=== PATIENT | male | born 1955 | race Caucasian/White ===

== ENCOUNTER 2017-09-17 22:35 | Inpatient (IN) | payer OTHER ==
[~2017-09-17 22:35] MED LIST: FOLI1TAB6; HYDR25TA5 PO; LISI-515 PO; METO25TA3 PO
[2017-09-17 23:00] VITALS: BP 144/97; PULSE 101; RESP 18; TEMP 97.7; O2SAT 98
[2017-09-17 23:26] VITALS: PULSE 110
[2017-09-18] VITALS (29 sets, daily range): BP systolic 106–132; BP diastolic 82–97; PULSE 80–136; RESP 16–18; TEMP 98.3–98.8; O2SAT 95–98
[2017-09-18] MEDS ORDERED: METOPROLOL TARTRATE 25 MG TAB PO SCH (09:00)
[2017-09-18] MEDS: APIXABAN 5 MG TABLET PO SCH (09:02)
[2017-09-18] MEDS: LISINOPRIL 20 MG TAB PO SCH (09:02)
[2017-09-18] MEDS: FUROSEMIDE 20 MG TAB PO SCH (09:02)
--- NOTE | 2017-09-18 10:15 | HHI.HP ---
HPI Service CP Hospitalists Primary Care Physician [facility] Admission Diagnosis Atrial fib with RVR Chief Complaint: Fatigues, LE edema Travel History International Travel<30 Days: No Contact w/Intl Traveler <30 Da: No Traveled to Known Affected Are: No History of Present Illness Mr. Rayray Bergman is a pleasant 61 y/o male who speaks only Cypriot. Dr. Kaminski who also speaks Cypriot was able to obtain the history from the patient. He presented to the ED at [facility] on 09/17/17 with complaints of increasing dyspnea over the past 2 weeks and generalized fatigue. He also noted significant LE edema and abdominal distention. There were no complaints of chest pain, palpitations, lightheadedness, dizziness, or syncope. Patient went to a walk-in clinic on 09/17 where an EKG showed atrial fibrillation with a rate of approximately 110 and he was referred to the ER. Upon review of outpt records it is noted that the pt has hx of atrial fibrillation, HTN and diastolic dysfunction. He was previously hospitalized at in 01/2017 for a gastroenteritis and noted colitis on CT scan. At that time he was documented to be taking Metoprolol 25mg BID, Amiodarone 200mg daily, Digoxin 0.125mg daily and Xarelto. It is not clear if the pt is still taking all of these medications or not. He is unclear as to what medications he takes. He does report being on a "water pill" and a blood pressure medication. In the ED pt was noted to be in A. fib RVR and was given Cardizem and Lasix with potassium. His BNP was 1130 in the ED. CXR noted cardiomegaly without radiographic evidence of congestive failure. Pt was resumed on Metoprolol 25mg po BID but HR is still elevated into the 110's-120's on telemetry at the time of examination. Review of Systems Constitutional: COMPLAINS OF: Fatigue Eyes: DENIES: Vision loss Ears, nose, mouth, throat: DENIES: Hearing loss Respiratory: DENIES: Cough, Sputum production, Shortness of breath Cardiovascular: COMPLAINS OF: Dyspnea on Exertion, Lower Extremity Edema, DENIES: Chest pain, Palpitations Gastrointestinal: DENIES: Abdominal pain, Constipation, Diarrhea, Nausea, Reflux, Vomiting Genitourinary: DENIES: Hematuria, Dysuria Musculoskeletal: DENIES: Back pain Integumentary: DENIES: Rash Neurologic: DENIES: Headache Psychiatric: DENIES: Confusion Past Family Social History Past Medical History Atrial fibrillation HTN Hx of diastolic dysfunction Hx of gastroenteritis/colitis noted on CT in 01/2017 during hospitalization at [facility] Past Surgical History No reported previous surgeries Reported Medications Lisinopril 20 Mg PO DAILY Metoprolol Tartrate 25 Mg PO BID [id number] Mg PO DAILY Folic Acid 1 Mg Tablet According to outpt records/discharge summary from 01/2017 from pt also on: Amiodarone 200mg po daily Buspar 5mg TID Xanax 0.5mg BID PRN Digoxin 0.125mg po daily Losartan 50mg po daily Omeprazole 20mg po daily Xarelto 20mg po daily Allergies: Coded Allergies: No Known Allergies (Verified Allergy, Unknown, 09/17/17) Family History Noncontributory Social History (+)Alcohol intake, 1-2 drinks per week, no daily alcohol use Denies tobacco use or illicit drug use Pt is originally from [place] but has lived in the for the last 20 years He speaks only Cypriot Physical Exam Vital Signs Vital Signs Date Time Temp Pulse Resp B/P (MAP) Pulse Ox O2 Delivery O2 Flow Rate FiO2 09/18/17 06:12 102 09/18/17 05:18 110 09/18/17 04:00 123 09/18/17 03:40 97 18 120/83 (95) 97 09/18/17 03:00 127 09/18/17 02:00 116 09/18/17 01:00 130 09/18/17 00:00 104 09/17/17 23:26 110 09/17/17 23:00 97.7 101 18 144/97 (113) 98 09/17/17 23:00 98 Room Air Physical Exam GENERAL: This is a well-nourished, well-developed patient, in no apparent distress. HEENT: Atraumatic. Normocephalic. No temporal or scalp tenderness. No scleral icterus. Airway patent. NECK: Trachea midline, supple, nontender. CARDIO: Irregular, tachy. RESP: CTA bilaterally. No wheezes, rales, or rhonchi. ABD: +BS, soft, non-tender, nondistended. EXT: Mild bilateral LE edema NEURO: Awake and alert. Motor and sensory grossly within normal limits. Normal speech. Caprini VTE Risk Assessment Caprini VTE Risk Assessment: Mod/High Risk (score >= 2) Caprini Risk Assessment Model Point Value = 1 Point Value = 2 Point Value = 3 Point Value = 5 Age 41-60 Minor surgery BMI > 25 kg/m2 Swollen legs Varicose veins or History of unexplained or recurrent spontaneous Oral contraceptives or hormone replacement Sepsis (< 1 month) Serious lung disease, including pneumonia (< 1 month) Abnormal pulmonary function Acute myocardial infarction Congestive heart failure (< 1 month) History of inflammatory bowel disease Medical patient at bed rest Age 61-74 Arthroscopic surgery Major open surgery (> 45 min) Laparoscopic surgery (> 45 min) Malignancy Confined to bed (> 72 hours) Immobilizing plaster cast Central venous access Age >= 75 History of VTE Family history of VTE Factor V Leiden Prothrombin [id number] Lupus anticoagulant Anticardiolipin antibodies Elevated serum homocysteine Heparin-induced thrombocytopenia Other congenital or acquired thrombophilia Stroke (< 1 month) Elective arthroplasty Hip, pelvis, or leg fracture Acute spinal cord injury (< 1 month) Prophylaxis Regimen Total Risk Factor Score Risk Level Prophylaxis Regimen 0-1 Low Early ambulation 2 Moderate Order ONE of the following: *Sequential Compression Device (SCD) *Heparin 5000 units SQ BID 3-4 Higher Order ONE of the following medications: *Heparin 5000 units SQ TID *Enoxaparin/Lovenox 40 mg SQ daily (WT < 150 kg, CrCl > 30 mL/min) *Enoxaparin/Lovenox 30 mg SQ daily (WT < 150 kg, CrCl > 10-29 mL/min) *Enoxaparin/Lovenox 30 mg SQ BID (WT < 150 kg, CrCl > 30 mL/min) AND/OR *Sequential Compression Device (SCD) 5 or more Highest Order ONE of the following medications: *Heparin 5000 units SQ TID (Preferred with Epidurals) *Enoxaparin/Lovenox 40 mg SQ daily (WT < 150 kg, CrCl > 30 mL/min) *Enoxaparin/Lovenox 30 mg SQ daily (WT < 150 kg, CrCl > 10-29 mL/min) *Enoxaparin/Lovenox 30 mg SQ BID (WT < 150 kg, CrCl > 30 mL/min) AND *Sequential Compression Device (SCD) Assessment and Plan Problem List: (1) Atrial fibrillation with RVR ICD Codes: I48.91 - Unspecified atrial fibrillation Status: Acute Plan: - Pt is a 61 y/o male, with hx of atrial fibrillation, HTN and diastolic dysfunction, who speaks only Cypriot. Dr. Kaminski, who also speaks Cypriot, was able to obtain the history from the patient. - He presented to the ED at [facility] on 09/17/17 with complaints of increasing dyspnea over the past 2 weeks and generalized fatigue. He also noted significant LE edema and abdominal distention. There were no complaints of chest pain, palpitations , lightheadedness, dizziness, or syncope. Patient went to a walk-in clinic on 09/17 where an EKG showed atrial fibrillation with a rate of approximately 110 and he was referred to the ER. - He was previously hospitalized at in 01/2017 for a gastroenteritis and noted colitis on CT scan. At that time he was documented to be discharged on Metoprolol 25mg BID, Amiodarone 200mg daily, Digoxin 0.125mg daily and Xarelto. It is not clear if the pt is still taking all of these medications or not. - In the ED pt was noted to be in A. fib RVR and was given Cardizem and Lasix with potassium. - His BNP was 1130 in the ED. - CXR noted cardiomegaly without radiographic evidence of congestive failure. - Pt was resumed on Metoprolol 25mg po BID but HR is still elevated into the 110 's-120's on telemetry at the time of examination. - Increase Metoprolol to 50mg po BID - Pt was started on Eliquis 5mg po daily at admission. - Monitor HR on telemetry - We will obtain a 2D echo - Pts compliance is questionable and there is likely a language barrier causing issues. - Cont. Eliquis - Monitor BP with medication changes - Supportive care DISCHARGE PLANNING - Its not clear that he followed with any [facility] PCP after his last hospitalization at in 01/2017 and he did not followup with GI as recommended at that time for evaluation with colonoscopy - Anticipate a 2-3 day hospital admission for HR control and getting the pt on appropriate medications for his A. fib and reported diastolic dysfunction. - We will try to touch base with the pts daughter who reportedly is in the [place] in [place]. (2) HTN (hypertension) ICD Codes: I10 - Essential (primary) hypertension Status: Chronic Plan: - Lisinopril 20mg po daily resumed - Monitor (3) Diastolic dysfunction ICD Codes: I51.9 - Heart disease, unspecified Status: Chronic Plan: - Pt with reported diastolic dysfunction - Obtain 2D echo to re-evaluate - Pt continued on SHAZIA and Lasix 20mg po daily - Monitor electrolytes Assessment and Plan Patient examined. Assessment and plan formulated with Charissa Vital PA-C. I agree with the above. Physician Certification 2 Midnight Certification Type: Admission for Inpatient Services Order for Inpatient Services The services are ordered in accordance with Medicare regulations or non- Medicare payer requirements, as applicable. In the case of services not specified as inpatient-only, they are appropriately provided as inpatient services in accordance with the 2-midnight benchmark. Estimated LOS (days): 3 3 days is the estimated time the patient will need to remain in the hospital, assuming treatment plan goals are met and no additional complications. Post-Hospital Plan: Not yet determined Charissa Vital Sep 18, 2017 10:15 Ricky Kaminski DO Sep 19, 2017 11:03
[2017-09-18] MEDS ORDERED: ACETAMINOPHEN 325 MG TAB PO PRN (10:45)
[2017-09-18] MEDS ORDERED: METOPROLOL TARTRATE 25 MG TAB PO ONE (10:45)
[2017-09-18] MEDS ORDERED: ONDANSETRON HCL 4 MG/2 ML VIAL IV PRN (10:45)
--- NOTE | 2017-09-18 17:23 | ECHRPT ---
Indication: CONCLUSIONS The left ventricular systolic function is mildly reduced with an estimated ejection fraction in the range of 45- 50%. Mild concentric left ventricular hypertrophy. There is global left ventricular dysfunction. Mild mitral valve regurgitation. Mild aortic valve regurgitation. There is mild tricuspid valve regurgitation. BP: 124 / 62 HR: 72 Rhythm: MEASUREMENTS (Male / Female) Normal Values Technical Quality:Good 2D ECHO LV Diastolic Diameter PLAX 4.6 cm 4.2 - 5.9 / 3.9 - 5.3 cm LV Systolic Diameter PLAX 3.5 cm IVS Diastolic Thickness 1.8 cm 0.6 - 1.0 / 0.6 - 0.9 cm LVPW Diastolic Thickness 1.4 cm 0.6 - 1.0 / 0.6 - 0.9 cm LV Relative Wall Thickness 0.7 RV Internal Dim ED PLAX 2.4 cm M-MODE Aortic Root Diameter MM 3.5 cm LA Systolic Diameter MM 4.8 cm LA Ao Ratio MM 1.4 AV Cusp Separation MM 1.5 cm DOPPLER TR Peak Velocity 302.0 cm/s TR Peak Gradient 36.5 mmHg Right Atrial Pressure 10.0 mmHg Pulmonary Artery Systolic Pressu 46.5 mmHg Right Ventricular Systolic Press 46.5 mmHg FINDINGS LEFT VENTRICLE Normal left ventricular size. Mild concentric left ventricular hypertrophy. The left ventricular systolic function is mildly reduced with an estimated ejection fraction in the range of 45- 50%. There is global left ventricular dysfunction. RIGHT VENTRICLE The right ventricular size is normal. The right ventricular systoilc function is mildly decreased. LEFT ATRIUM The left atrial size is [id number] dilated. RIGHT ATRIUM The right atrial size is normal. ATRIAL SEPTUM Normal atrial septal thickness. AORTA The aortic root and proximal ascending aorta are not well visualized. MITRAL VALVE Structurally normal mitral valve. No mitral valve stenosis. Mild mitral valve regurgitation. AORTIC VALVE Mild aortic valve regurgitation. No aortic valve stenosis. TRICUSPID VALVE Structurally normal tricuspid valve. There is mild tricuspid valve regurgitation. There is estimated mild pulmonary hypertension present (range 40-50 mmHg). PULMONARY VALVE No pulmonary valve regurgitation or stenosis. VESSELS The inferior vena cava is normal in size. PERICARDIUM No pericardial effusion. Bobby Shelby DO (Electronically Signed) Final Date:18 September 2017 17:12
[2017-09-18] MEDS: METOPROLOL TARTRATE 50 MG TAB PO SCH (20:53)
[2017-09-19] VITALS (26 sets, daily range): BP systolic 109–135; BP diastolic 79–98; PULSE 72–108; RESP 16–18; TEMP 97.6–98.3; O2SAT 97–99
[2017-09-19 06:22] LABS: AUTOMATED NEUTROPHIL # 4.8 TH/MM3 (1.8-7.7); BASOPHIL % 0.6 % (0.0-2.0); EOSINOPHIL # 0.1 TH/MM3 (0-0.4); EOSINOPHIL % 1.7 % (0.0-4.0); HEMATOCRIT 34.3 % (39.0-51.0); HEMO FLAGS DIFF FINAL; LYMPHOCYTE # 1.3 TH/MM3 (1.0-4.8); MEAN CELL VOLUME 85.7 FL (80.0-100.0); MEAN CORPUSCULAR HEMOGLOBIN 29.3 PG (27.0-34.0); MEAN CORPUSCULAR HGB CONC 34.2 % (32.0-36.0); MONO % 12.4 % (0.0-8.0); NEUT % 67.3 % (16.0-70.0); PLATELET COUNT 237 TH/MM3 (150-450); RED CELL DISTRIBUTION WIDTH 16.2 % (11.6-17.2); WHITE BLOOD COUNT 7.1 TH/MM3 (4.0-11.0)
[2017-09-19 06:24] LABS: BICARBONATE 28.6 MEQ/L (21.0-32.0); MAGNESIUM 1.9 MG/DL (1.5-2.5); POTASSIUM 3.5 MEQ/L (3.5-5.1)
[2017-09-19] MEDS: LISINOPRIL 20 MG TAB PO SCH (08:59)
[2017-09-19] MEDS: FUROSEMIDE 20 MG TAB PO SCH (09:00)
[2017-09-19] MEDS: METOPROLOL TARTRATE 50 MG TAB PO SCH (09:00)
[2017-09-19] MEDS: APIXABAN 5 MG TABLET PO SCH (09:00)
--- NOTE | 2017-09-19 10:09 | HHI.PR ---
Subjective Remarks Patient evaluated with Dr. Kaminski. Patient speaks Turkmen discussion per Dr. Chen who also speaks Turkmen HR improved 80-90s Offers no complaints at this time Objective Vitals Vital Signs Date Time Temp Pulse Resp B/P (MAP) Pulse Ox O2 Delivery O2 Flow Rate FiO2 09/19/17 09:00 89 09/19/17 08:00 90 09/19/17 07:00 89 09/19/17 07:00 89 09/19/17 07:00 Room Air 96 09/19/17 07:00 98.0 89 16 135/97 (110) 98 09/19/17 06:03 84 09/19/17 05:07 85 09/19/17 04:09 98 09/19/17 03:29 86 09/19/17 03:20 98.2 108 17 131/87 (102) 97 09/19/17 02:17 85 09/19/17 01:08 103 09/19/17 00:27 106 09/18/17 23:56 93 09/18/17 23:15 98.5 105 16 114/82 (93) 98 09/18/17 22:15 89 09/18/17 21:00 80 09/18/17 20:10 110 09/18/17 19:33 119 09/18/17 19:25 98 Room Air 09/18/17 19:25 119 09/18/17 19:25 98.3 108 16 106/84 (91) 98 09/18/17 18:00 136 09/18/17 17:00 112 09/18/17 16:00 96 09/18/17 15:30 98.7 96 18 132/97 (109) 98 09/18/17 15:30 96 09/18/17 15:00 106 09/18/17 14:00 108 09/18/17 13:00 118 09/18/17 12:00 120 09/18/17 11:30 98.8 122 18 127/88 (101) 95 09/18/17 11:30 122 09/18/17 11:00 120 Result Diagram: 09/19/17 0518 09/19/17 0518 Other Results Laboratory Tests Test 09/19/17 05:18 White Blood Count 7.1 TH/MM3 Red Blood Count 4.00 MIL/MM3 Hemoglobin 11.7 GM/DL Hematocrit 34.3 % Mean Corpuscular Volume 85.7 FL Mean Corpuscular Hemoglobin 29.3 PG Mean Corpuscular Hemoglobin Concent 34.2 % Red Cell Distribution Width 16.2 % Platelet Count 237 TH/MM3 Mean Platelet Volume 8.5 FL Neutrophils (%) (Auto) 67.3 % Lymphocytes (%) (Auto) 18.0 % Monocytes (%) (Auto) 12.4 % Eosinophils (%) (Auto) 1.7 % Basophils (%) (Auto) 0.6 % Neutrophils # (Auto) 4.8 TH/MM3 Lymphocytes # (Auto) 1.3 TH/MM3 Monocytes # (Auto) 0.9 TH/MM3 Eosinophils # (Auto) 0.1 TH/MM3 Basophils # (Auto) 0.0 TH/MM3 CBC Comment DIFF FINAL Differential Comment Blood Urea Nitrogen 19 MG/DL Creatinine 1.21 MG/DL Random Glucose 89 MG/DL Calcium Level 8.5 MG/DL Magnesium Level 1.9 MG/DL Sodium Level 137 MEQ/L Potassium Level 3.5 MEQ/L Chloride Level 101 MEQ/L Carbon Dioxide Level 28.6 MEQ/L Anion Gap 7 MEQ/L Estimat Glomerular Filtration Rate 61 ML/MIN Objective Remarks GENERAL: This is a well-nourished, well-developed patient, in no apparent distress. CARDIOVASCULAR: Irregular irregular RESPIRATORY: Clear to auscultation. Breath sounds equal bilaterally. GASTROINTESTINAL: Abdomen soft, non-tender, nondistended. Normal active bowel sounds MUSCULOSKELETAL: Extremities without clubbing, cyanosis, or edema. NEURO: Alert & Oriented x4 to person, place, time, situation. Moves all ext x4 A/P Problem List: (1) Atrial fibrillation with RVR ICD Codes: I48.91 - Unspecified atrial fibrillation Status: Acute Plan: - Pt is a 61 y/o male, with hx of atrial fibrillation, HTN and diastolic dysfunction, who speaks only Turkmen. Dr. Kaminski, who also speaks Turkmen, was able to obtain the history from the patient. - He presented to the ED at [facility] on 09/17/17 with complaints of increasing dyspnea over the past 2 weeks and generalized fatigue. He also noted significant LE edema and abdominal distention. There were no complaints of chest pain, palpitations , lightheadedness, dizziness, or syncope. Patient went to a walk-in clinic on 09/17 where an EKG showed atrial fibrillation with a rate of approximately 110 and he was referred to the ER. - He was previously hospitalized at in 01/2017 for a gastroenteritis and noted colitis on CT scan. At that time he was documented to be discharged on Metoprolol 25mg BID, Amiodarone 200mg daily, Digoxin 0.125mg daily and Xarelto. It is not clear if the pt is still taking all of these medications or not. - In the ED pt was noted to be in A. fib RVR and was given Cardizem and Lasix with potassium. - His BNP was 1130 in the ED. - CXR noted cardiomegaly without radiographic evidence of congestive failure. - Pt was resumed on Metoprolol 25mg po BID but HR is still elevated into the 110 's-120's on telemetry at the time of examination. - Increase Metoprolol to 50mg po BID (09/18) - increased metoprolol to 75 mg PO BID (09/19) - Pt was started on Eliquis 5mg po daily at admission. - Monitor HR on telemetry - 2D echo reviewed and reveals: EF 45-50% mild left ventricular hypertrophy, left ventricular dysfunction, mild mitral valve regurgitation, mild aortic valve regurgitation and there is mild tricuspid valve regurgitation - Pts compliance is questionable and there is likely a language barrier causing issues. - Cont. Eliquis - Monitor BP with medication changes - Supportive care - encourage increased activity and ambulation today DISCHARGE PLANNING - Its not clear that he followed with any [facility] PCP after his last hospitalization at in 01/2017 and he did not followup with GI as recommended at that time for evaluation with colonoscopy - Anticipate discharge in 1-2 days HR control improved. Will need to monitor HR with increased activity prior to DC (2) HTN (hypertension) ICD Codes: I10 - Essential (primary) hypertension Status: Chronic Plan: - increasing metoprolol, will stop Lisinopril - Monitor (3) Diastolic dysfunction ICD Codes: I51.9 - Heart disease, unspecified Status: Chronic Plan: - Pt with reported diastolic dysfunction - Pt continued on SHAZIA and Lasix 20mg po daily - Monitor electrolytes Assessment and Plan Patient examined. Assessment and plan formulated with Heather Laguna PA-C. I agree with the above. HR improving Telemetry: Afib 90-100 at rest -increase metoprolol to 75mg BID, and observe response - Pt will need to f/u with Cardiology outpt - anticipate discharge to home in next 1-2 days. Heather Laguna Sep 19, 2017 10:09 Ricky Kaminski DO Sep 19, 2017 11:07
[2017-09-19] MEDS ORDERED: METOPROLOL TARTRATE 25 MG TAB PO ONE (10:45)
[2017-09-19] MEDS: METOPROLOL TARTRATE 25 MG TAB PO SCH (20:09)
[2017-09-20] VITALS (26 sets, daily range): BP systolic 97–119; BP diastolic 68–83; PULSE 76–113; RESP 16–20; TEMP 98–98.5; O2SAT 95–100
[2017-09-20] MEDS ORDERED: APIX5TAB PO (08:23)
[2017-09-20] MEDS: APIXABAN 5 MG TABLET PO SCH (08:23)
[2017-09-20] MEDS ORDERED: METO25TA3 PO (08:23)
[2017-09-20] MEDS: FUROSEMIDE 20 MG TAB PO SCH (08:23)
[2017-09-20] MEDS: METOPROLOL TARTRATE 25 MG TAB PO SCH ×2 (08:24→20:30)
[2017-09-20] MEDS ORDERED: DIGOXIN 0.5 MG/2 ML VIAL IVS STA (08:46)
--- NOTE | 2017-09-20 08:51 | HHI.PR ---
Subjective Remarks Patient reports feeling well HR has intermittently been up into the 100-113 bpm Objective Vitals Vital Signs Date Time Temp Pulse Resp B/P (MAP) Pulse Ox O2 Delivery O2 Flow Rate FiO2 09/20/17 08:00 102 09/20/17 07:13 98.1 96 18 119/77 (91) 97 09/20/17 07:13 100 09/20/17 06:11 113 09/20/17 05:08 81 09/20/17 04:14 86 09/20/17 03:41 87 09/20/17 03:41 98.5 80 18 119/72 (88) 100 09/20/17 02:18 86 09/20/17 01:20 104 09/20/17 00:37 96 09/19/17 23:45 98.1 102 18 133/98 (110) 97 09/19/17 23:20 104 09/19/17 22:40 96 09/19/17 21:30 88 09/19/17 20:00 106 09/19/17 19:50 98.2 89 17 120/81 (94) 97 09/19/17 19:50 92 09/19/17 18:00 83 09/19/17 17:00 88 09/19/17 16:00 86 09/19/17 15:00 98.3 88 16 109/79 (89) 99 09/19/17 15:00 72 09/19/17 14:00 86 09/19/17 13:00 84 09/19/17 12:00 86 09/19/17 11:00 72 09/19/17 11:00 97.6 72 16 115/85 (95) 99 09/19/17 10:00 100 09/19/17 09:00 89 Result Diagram: 09/19/1718 09/19/17 0518 Other Results Laboratory Tests Test 09/19/17 05:18 White Blood Count 7.1 TH/MM3 Red Blood Count 4.00 MIL/MM3 Hemoglobin 11.7 GM/DL Hematocrit 34.3 % Mean Corpuscular Volume 85.7 FL Mean Corpuscular Hemoglobin 29.3 PG Mean Corpuscular Hemoglobin Concent 34.2 % Red Cell Distribution Width 16.2 % Platelet Count 237 TH/MM3 Mean Platelet Volume 8.5 FL Neutrophils (%) (Auto) 67.3 % Lymphocytes (%) (Auto) 18.0 % Monocytes (%) (Auto) 12.4 % Eosinophils (%) (Auto) 1.7 % Basophils (%) (Auto) 0.6 % Neutrophils # (Auto) 4.8 TH/MM3 Lymphocytes # (Auto) 1.3 TH/MM3 Monocytes # (Auto) 0.9 TH/MM3 Eosinophils # (Auto) 0.1 TH/MM3 Basophils # (Auto) 0.0 TH/MM3 CBC Comment DIFF FINAL Differential Comment Blood Urea Nitrogen 19 MG/DL Creatinine 1.21 MG/DL Random Glucose 89 MG/DL Calcium Level 8.5 MG/DL Magnesium Level 1.9 MG/DL Sodium Level 137 MEQ/L Potassium Level 3.5 MEQ/L Chloride Level 101 MEQ/L Carbon Dioxide Level 28.6 MEQ/L Anion Gap 7 MEQ/L Estimat Glomerular Filtration Rate 61 ML/MIN Objective Remarks GENERAL: This is a well-nourished, well-developed patient, in no apparent distress. CARDIOVASCULAR: Irregular irregular RESPIRATORY: Clear to auscultation. Breath sounds equal bilaterally. GASTROINTESTINAL: Abdomen soft, non-tender, nondistended. Normal active bowel sounds MUSCULOSKELETAL: Extremities without clubbing, cyanosis, or edema. NEURO: Alert & Oriented x4 to person, place, time, situation. Moves all ext x4 A/P Problem List: (1) Atrial fibrillation with RVR ICD Codes: I48.91 - Unspecified atrial fibrillation Status: Acute Plan: - Pt is a 61 y/o male, with hx of atrial fibrillation, HTN and diastolic dysfunction, who speaks only Panamanian. Dr. Kaminski, who also speaks Panamanian, was able to obtain the history from the patient. - He presented to the ED at [facility] on 09/17/17 with complaints of increasing dyspnea over the past 2 weeks and generalized fatigue. He also noted significant LE edema and abdominal distention. There were no complaints of chest pain, palpitations , lightheadedness, dizziness, or syncope. Patient went to a walk-in clinic on 09/17 where an EKG showed atrial fibrillation with a rate of approximately 110 and he was referred to the ER. - He was previously hospitalized at in 01/2017 for a gastroenteritis and noted colitis on CT scan. At that time he was documented to be discharged on Metoprolol 25mg BID, Amiodarone 200mg daily, Digoxin 0.125mg daily and Xarelto. It is not clear if the pt is still taking all of these medications or not. - In the ED pt was noted to be in A. fib RVR and was given Cardizem and Lasix with potassium. - His BNP was 1130 in the ED. - CXR noted cardiomegaly without radiographic evidence of congestive failure. - Pt was resumed on Metoprolol 25mg po BID but HR is still elevated into the 110 's-120's on telemetry at the time of examination. - Increase Metoprolol to 50mg po BID (09/18) - increased metoprolol to 75 mg PO BID (09/19) - start dig loading and check dig level in AM - consult cardiology - Pt was started on Eliquis 5mg po daily at admission. - Monitor HR on telemetry - 2D echo reviewed and reveals: EF 45-50% mild left ventricular hypertrophy, left ventricular dysfunction, mild mitral valve regurgitation, mild aortic valve regurgitation and there is mild tricuspid valve regurgitation - Pts compliance is questionable and there is likely a language barrier causing issues. - Cont. Eliquis - Monitor BP with medication changes - Supportive care - encourage increased activity and ambulation today DISCHARGE PLANNING - Its not clear that he followed with any [facility] PCP after his last hospitalization at [facility] in 01/2017 and he did not followup with GI as recommended at that time for evaluation with colonoscopy - Anticipate discharge tomorrow if HR controlled and patient cleared by cardiology. Will need to monitor HR with increased activity prior to DC (2) HTN (hypertension) ICD Codes: I10 - Essential (primary) hypertension Status: Chronic Plan: - increasing metoprolol, will stop Lisinopril - Monitor (3) Diastolic dysfunction ICD Codes: I51.9 - Heart disease, unspecified Status: Chronic Plan: - Pt with reported diastolic dysfunction - Pt continued on SHAZIA and Lasix 20mg po daily - Monitor electrolytes Assessment and Plan Patient examined. Assessment and plan formulated with Heather Laguna PA-C. I agree with the above. Pt's heart rate is improving overall, but still with some sustained elevation recorded on telemetry continue metoprolol 75mg PO BID start digoxin, load IV If HR is controlled, then I anticipate discharge to home 09/21 await Cardiology consultation Heather Laguna Sep 20, 2017 08:51 Ricky Kaminski DO Sep 20, 2017 11:11
[2017-09-20] MEDS ORDERED: DIGOXIN 0.5 MG/2 ML VIAL IVS SCH (15:00)
--- NOTE | 2017-09-20 17:55 | MB ---
cc: EDSON HESTER MD DATE OF CONSULTATION 09/20/17 REASON FOR CONSULTATION Atrial fibrillation. HISTORY OF PRESENT ILLNESS This is a 61-year-old gentleman who only speaks Belizean. Most of the information was obtained from chart records. The patient presented to the emergency department initially at [facility] with progressive shortness of breath over two weeks associated with fatigue, abdominal distension and edema. When he was seen, his initial electrocardiogram showed atrial fibrillation with rapid ventricular rate. The patient does have a history of atrial fibrillation on an outpatient basis, has been on low-dose beta josy in addition to long-term anticoagulation. Echocardiogram showed an ejection fraction of 45-50%. He was given IV diuretic with improvement in his symptoms. His heart rate was still tachycardic here today and his beta josy was titrated. We were asked to assist in medical management. He is currently asymptomatic and seems to be doing well. PAST MEDICAL HISTORY 1. Atrial fibrillation, 2. Hypertension. 3. Diastolic dysfunction 4. Gastroenteritis. MEDICATIONS Home, 1. Lisinopril. 2. Metoprolol. 3. Hydrochlorothiazide. 4. Folate. 5. Amiodarone. 6. BuSpar. 7. Xanax. 8. Digoxin. 9. Losartan 10. Omeprazole 11. Xarelto ALLERGIES NO KNOWN DRUG ALLERGIES. FAMILY HISTORY Denies any family history or early cardiac disease or sudden cardiac . SOCIAL HISTORY Reports about one to two drinks a week. Denies any or drug use. REVIEW OF SYSTEMS Review of systems was performed, negative unless otherwise stated. PHYSICAL EXAMINATION VITAL SIGNS: Temperature is 98, pulse is 95, blood pressure 115/73 mmHg. GENERAL: Alert and oriented x3 in no acute distress. HEENT: Pupils reactive to light and accommodation, extraocular movements are intact. No elevation in jugular venous distension. No thyromegaly or lymphadenopathy. No carotid bruits. LUNGS: Clear to auscultation bilaterally. CARDIOVASCULAR: Irregular irregular rhythm without murmurs, rubs or gallops. ABDOMEN: Nontender, nondistended. Good bowel sounds. No hepatosplenomegaly. EXTREMITIES: No clubbing, cyanosis or edema. Good peripheral pulses. Cranial nerves intact. Motor sensory grossly intact. LABORATORY DATA WBC 7.1, hemoglobin 11.7, platelet count 237, sodium 137, potassium 3.5, BUN is 19, creatinine is 1.21. ASSESSMENT 1. Acute systolic and diastolic congestive heart failure. 2. Atrial fibrillation with rapid ventricular rate. 3. Hypertension. PLAN Symptomatically, it seems that the patient has been doing better after diuresis. In addition, his heart rates are better controlled with titration of beta josy. He has also resumed back on his prior Digoxin dose. His tachycardia was likely worsened by his respiratory distress. We will see how his heart rate is controlled with titration of beta josy in addition to Digoxin. It is unclear if he has prior known cardiomyopathy. He has reported diastolic dysfunction but no prior cardiomyopathy. This is probably more rate related. Once he makes a full recovery, may consider inpatient versus outpatient Lexiscan just to rule out ischemic etiology. He was previously on anticoagulation. We will go ahead and continue with that. MD EMI Sheth/ /11:49 AM /5:23 PM
[2017-09-20] MEDS ORDERED: DILTIAZEM INJ 125 MG in SODIUM CHLORIDE 0.9% INJ 100 ML IV PRN (19:00)
[2017-09-21] VITALS (20 sets, daily range): BP systolic 132–152; BP diastolic 78–88; PULSE 66–120; RESP 17–20; TEMP 98.1–98.5; O2SAT 97–99
--- NOTE | 2017-09-21 08:15 | PD.CARD.PN ---
Subjective Subjective Remarks Patient seen using [employer] translation services. Heart rate remains elevated overnight. The patient has no complaints today. Denies any chest pain, shortness breath, palpitations. Hoping to go home soon. (José Antonio Canchola) Objective Medications Current Medications Medications (Trade) Dose Ordered Sig/Yamil Route Start Time Stop Time Status Last Admin (Lasix) 20 mg DAILY PO 09/18/17 09:00 09/20/17 08:23 (Eliquis) 5 mg DAILY PO 09/18/17 09:00 09/20/17 08:23 (Tylenol) 650 mg Q4H PRN PO 09/18/17 10:45 (Zofran Inj) 4 mg Q6H PRN IV 09/18/17 10:45 Diltiazem HCl 125 mg/Sodium Chloride 125 ml @ 5 mls/hr TITRATE PRN IV 09/20/17 19:00 (Lopressor) 100 mg Q12HR PO 09/21/17 09:00 UNV (Lanoxin) 0.25 mg DAILY PO 09/21/17 09:00 UNV Vital Signs / I&O Vital Signs Date Time Temp Pulse Resp B/P (MAP) Pulse Ox O2 Delivery O2 Flow Rate FiO2 09/21/17 07:23 98.1 76 18 144/78 (100) 97 09/21/17 07:15 77 09/21/17 06:24 99 09/21/17 05:25 66 09/21/17 04:08 101 09/21/17 03:25 98.2 92 17 148/84 (105) 98 09/21/17 03:11 88 09/21/17 02:11 80 09/21/17 01:02 76 09/21/17 00:07 96 09/20/17 23:39 98.4 86 16 102/68 (79) 96 09/20/17 23:07 92 09/20/17 22:25 90 09/20/17 21:41 84 09/20/17 20:20 94 09/20/17 19:40 92 09/20/17 19:20 98.2 81 16 97/73 (81) 97 09/20/17 18:00 109 09/20/17 17:00 104 09/20/17 16:00 86 09/20/17 15:00 98.0 96 20 119/83 (95) 96 09/20/17 15:00 89 09/20/17 14:00 82 09/20/17 13:00 106 09/20/17 12:00 102 09/20/17 11:00 83 09/20/17 11:00 98.5 95 18 115/73 (87) 95 09/20/17 10:00 76 09/20/17 09:00 82 I/O 09/20/17 09/20/17 09/20/17 09/21/17 09/21/17 09/21/17 06:59 14:59 22:59 06:59 14:59 22:59 Intake Total 480 ml 480 ml 720 ml Output Total 600 ml Balance 480 ml -120 ml 720 ml Intake Oral 480 ml 480 ml 720 ml Output Urine Total 600 ml # Voids 5 5 # Bowel Movements 0 Physical Exam GENERAL: Well-developed well-nourished. In no acute distress. NECK: No carotid bruits. No JVD. CARDIOVASCULAR: Rapid irregular rate and rhythm. No murmur appreciated. RESPIRATORY: No accessory muscle use. Clear to auscultation. Breath sounds equal bilaterally. MUSCULOSKELETAL: No clubbing or cyanosis. No edema. NEUROLOGICAL: Awake and alert. Normal speech. Laboratory Laboratory Tests Test 09/21/17 05:46 Digoxin Level 0.2 NG/ML (José Antonio Canchola) Assessment and Plan Assessment and Plan 61-year-old male with past medical history of atrial fibrillation, HTN, Hx of diastolic dysfunction, and GERD, who presented for dyspnea and fatigue. Atrial fibrillation with rapid ventricular rate: Uncontrolled. Increase metoprolol to 100 mg twice daily. Loaded with IV digoxin yesterday, start 0.25 mg daily. Acute systolic and diastolic congestive heart failure: Echocardiogram showed mild cardiomyopathy, EF 45-50 %. Probably more rate related. Continue Lasix. Consider inpatient versus outpatient Lexiscan to rule out ischemic etiology. Hypertension: Reasonably controlled. Continue metoprolol. (José Antonio Canchola) Assessment and Plan \ afib HR improved. occasional RVR but asymptomatic. titrate metoprolol 100 mg BID continue digoxin 0.25 mg daily DC home today outpatient lexiscan for EF 45%,ischemic vs nonischemic cont low dose lasix FU with dr ross mendez secondary to kittitian speaking (Santosh Villanueva MD) José Antonio Canchola Sep 21, 2017 08:15 Santosh Villanueva MD Sep 21, 2017 10:27
[2017-09-21] MEDS: APIXABAN 5 MG TABLET PO SCH (08:23)
[2017-09-21] MEDS: FUROSEMIDE 20 MG TAB PO SCH (08:23)
[2017-09-21] MEDS ORDERED: METOPROLOL TARTRATE 100 MG TAB PO SCH (09:00)
[2017-09-21] MEDS ORDERED: DIGOXIN 0.25 MG TAB PO SCH (09:00)
[2017-09-21] MEDS ORDERED: DIGOXIN 0.5 MG/2 ML VIAL IV PUSH ONE (10:30)
[2017-09-21] MEDS ORDERED: METO-338 PO (10:38)
[2017-09-21] MEDS ORDERED: DIGO0.25 PO (10:38)
--- NOTE | 2017-09-21 13:42 | HHI.FF ---
Face to Face Verification Diagnosis: (1) Atrial fibrillation with RVR (2) Diastolic dysfunction (3) HTN (hypertension) Home Health Nursing Order: Medical education Signs/symptoms of disease process CHF education Medication education-adverse effect Nursing assessment with vital signs Instructions: BMP weekly results to PCP- [facility] I have seen patient Josiah Strauss on 09/21/17. My clinical findings support the need for the requested home health care services because: Med compliance is questionable Limited ability to care for self I certify that my clinical findings support that this patient is homebound because: Need for psychosocial assistance Unable to use public transportation Heather Laguna Sep 21, 2017 13:42
[2017-09-21] MEDS ORDERED: XARE20TA PO (13:47)
[2017-09-21] MEDS ORDERED: POTA-163 PO (13:47)
[2017-09-21] MEDS ORDERED: METO-426 PO (13:47)
[2017-09-21] MEDS ORDERED: FURO1TAB60 PO (13:47)
--- NOTE | 2017-09-21 18:23 | HHI.DS ---
Discharge Summary Admission Date Sep 17, 2017 at 22:45 Discharge Date: Sep 21, 2017 Admitting Diagnosis Atrial fib with RVR (1) Atrial fibrillation with RVR Diagnosis: Principal ICD Codes: I48.91 - Unspecified atrial fibrillation Status: Acute (2) HTN (hypertension) Diagnosis: Secondary ICD Codes: I10 - Essential (primary) hypertension Status: Chronic (3) Diastolic dysfunction Diagnosis: Secondary ICD Codes: I51.9 - Heart disease, unspecified Status: Chronic Consultants Dr. Villanueva Procedures none Brief History Mr. Rayray Bergman is a pleasant 61 y/o male who speaks only Kosovan. Dr. Kaminski who also speaks Kosovan was able to obtain the history from the patient. He presented to the ED at [facility] on 09/17/17 with complaints of increasing dyspnea over the past 2 weeks and generalized fatigue. He also noted significant LE edema and abdominal distention. There were no complaints of chest pain, palpitations, lightheadedness, dizziness, or syncope. Patient went to a walk-in clinic on 09/17 where an EKG showed atrial fibrillation with a rate of approximately 110 and he was referred to the ER. Upon review of outpt records it is noted that the pt has hx of atrial fibrillation, HTN and diastolic dysfunction. He was previously hospitalized at in 01/2017 for a gastroenteritis and noted colitis on CT scan. At that time he was documented to be taking Metoprolol 25mg BID, Amiodarone 200mg daily, Digoxin 0.125mg daily and Xarelto. It is not clear if the pt is still taking all of these medications or not. He is unclear as to what medications he takes. He does report being on a "water pill" and a blood pressure medication. In the ED pt was noted to be in A. fib RVR and was given Cardizem and Lasix with potassium. His BNP was 1130 in the ED. CXR noted cardiomegaly without radiographic evidence of congestive failure. Pt was resumed on Metoprolol 25mg po BID but HR is still elevated into the 110's-120's on telemetry at the time of examination. CBC/BMP: 09/19/17 0518 09/19/17 0518 Significant Findings Laboratory Tests Test 09/19/17 05:18 09/21/17 05:46 Red Blood Count 4.00 MIL/MM3 (4.50-5.90) Hemoglobin 11.7 GM/DL (13.0-17.0) Hematocrit 34.3 % (39.0-51.0) Monocytes (%) (Auto) 12.4 % (0.0-8.0) Blood Urea Nitrogen 19 MG/DL (7-18) Estimat Glomerular Filtration Rate 61 ML/MIN (>89) Digoxin Level 0.2 NG/ML (0.8-2.0) PE at Discharge GENERAL: This is a well-nourished, well-developed patient, in no apparent distress. CARDIOVASCULAR: Irregular irregular RESPIRATORY: Clear to auscultation. Breath sounds equal bilaterally. GASTROINTESTINAL: Abdomen soft, non-tender, nondistended. Normal active bowel sounds MUSCULOSKELETAL: Extremities without clubbing, cyanosis, or edema. NEURO: Alert & Oriented x4 to person, place, time, situation. Moves all ext x4 Hospital Course Atrial fibrillation with RVR - Pt is a 61 y/o male, with hx of atrial fibrillation, HTN and diastolic dysfunction, who speaks only Kosovan. Dr. Kaminski, who also speaks Kosovan, was able to obtain the history from the patient. - He presented to the ED at [facility] on 09/17/17 with complaints of increasing dyspnea over the past 2 weeks and generalized fatigue. He also noted significant LE edema and abdominal distention. There were no complaints of chest pain, palpitations , lightheadedness, dizziness, or syncope. Patient went to a walk-in clinic on 09/17 where an EKG showed atrial fibrillation with a rate of approximately 110 and he was referred to the ER. - He was previously hospitalized at in 01/2017 for a gastroenteritis and noted colitis on CT scan. At that time he was documented to be discharged on Metoprolol 25mg BID, Amiodarone 200mg daily, Digoxin 0.125mg daily and Xarelto. It is not clear if the pt is still taking all of these medications or not. - In the ED pt was noted to be in A. fib RVR and was given Cardizem and Lasix with potassium. - His BNP was 1130 in the ED. - CXR noted cardiomegaly without radiographic evidence of congestive failure. - Pt was resumed on Metoprolol 25mg po BID but HR is still elevated into the 110 's-120's on telemetry at the time of examination. - Increase Metoprolol to 50mg po BID (09/18) - increased metoprolol to 75 mg PO BID (09/19) - start dig loading and check dig level in AM - consult cardiology - Pt was started on Eliquis 5mg po daily at admission. - Monitor HR on telemetry - 2D echo reviewed and reveals: EF 45-50% mild left ventricular hypertrophy, left ventricular dysfunction, mild mitral valve regurgitation, mild aortic valve regurgitation and there is mild tricuspid valve regurgitation - Pts compliance is questionable and there is likely a language barrier causing issues. - Cleared for DC per cardiology. HR controlled - will DC home on Lasik 40mg daily, potassium 20 meq daily,Metoprolol 75 mg BID , Digoxin 0.25 mg daily, Xarelto 20 mg PO daily (as this is once a day which may help with compliance) - Dr. Kaminski discussed DC plan in detail with patient and friend who was present in the room. they both verbalized understanding - Patient to F/U with PCP and Dr. Boubacar Garcia as he is Kosovan speaking - Patient admits that prior to hospitalization he was not taking any medications. HTN (hypertension) - increasing metoprolol, will stop Lisinopril - Monitor Diastolic dysfunction - Pt with reported diastolic dysfunction - Pt continued Lasix 20mg po daily - SHAZIA discontinued due to concerns for hypotension with increased BB - Monitor electrolytes - home healthcare arranged to help monitor patient after DC to increase compliance and aid in electrolyte monitoring - attempted to contact PCP to review hospitalization and new regiment, unable to reach them as there office is closed. [facility] case [facility] notified and will also follow patient after DC Pt Condition on Discharge: Stable Discharge Disposition: Disch w/ Home Health Serv Discharge Instructions DIET: Follow Instructions for: Heart Healthy Diet Activities you can perform: Regular-No Restrictions Follow up Referrals: Cardiology - [address] Dotson PCP Follow-up - 1 Week with [facility] New Orders: BASIC METABOLIC PROF - 1 Week BASIC METABOLIC PROF - 2 Weeks DIGOXIN - 1 Week New Medications: Furosemide (Lasix) 40 Mg Tab 40 MG PO DAILY for fluid retention, #30 TAB 0 Refills Metoprolol Tartrate (Metoprolol Tartrate) 75 Mg Tab 75 MG PO BID for heart rate, #60 TAB 0 Refills Potassium Chloride ER (Potassium Chloride ER) 20 Meq Tab 20 MEQ PO DAILY for supplement with lasix, #30 TAB 0 Refills Rivaroxaban (Xarelto) 20 Mg Tab 20 MG PO DAILY for Blood Clot Prevention, #30 TAB 0 Refills Digoxin (Digoxin) 0.25 Mg Tab 0.25 MG PO DAILY for heart rate, #30 TAB 0 Refills Continued Medications: Folic Acid (Folic Acid) 1 Mg Tablet Discontinued Medications: Hydrochlorothiazide (Hydrochlorothiazide) 25 Mg Tab 25 MG PO DAILY, #30 TAB 0 Refills Lisinopril (Lisinopril) 20 Mg Tab 20 MG PO DAILY, #30 TAB 0 Refills Metoprolol Tartrate (Metoprolol Tartrate) 25 Mg Tab 25 MG PO BID, #60 TAB 0 Refills Additional Information Patient examined. Assessment and plan formulated with Heather Laguna PA-C. I agree with the above. Heather Laguna Sep 21, 2017 18:23 Ricky Kaminski DO Sep 25, 2017 23:34
== END 2017-09-21 17:42 | disposition home health service (06) | DRG 308 ==
LOC: NEDDLT 22:35 → HCPC 22:45
PROVIDERS: ADMIT Hospitalist; ATTEND Hospitalist
DX: I48.91 Unspecified atrial fibrillation (principal); I50.41 Acute combined systolic (congestive) and diastolic (congestive) heart failure; I42.9 Cardiomyopathy, unspecified; I08.3 Combined rheumatic disorders of mitral, aortic and tricuspid valves; I11.0 Hypertensive heart disease with heart failure; K21.9 Gastro-esophageal reflux disease without esophagitis
CPT/HCPCS: 71010; 80048; 80162; 83735; 83880; 84484; 85025; 85610; 85730; 93005; 93306; 96374; J1160; J1940